=== PATIENT | male | born 1990 | race Caucasian/White ===

== ENCOUNTER 2016-11-20 01:50 | Emergency (ER) | payer SELFPAY ==
[~2016-11-20] VITALS: Ht 182.9 cm; Wt 82.0 kg
[~2016-11-20 01:50] MED LIST: CIPRO500 MG PO; FLAGYL500 MG PO; ZANTAC300 MG PO; ZOFRAN ODT8 MG PO
[2016-11-20 02:21] LABS: EOSINOPHIL (%) 0.1 % (0-5); HEMATOCRIT 47.8 % (38.0-50.0); IMMATURE GRANULOCYTE (%) 0.5 % (0.0-0.7); IMMATURE GRANULOCYTE COUNT 0.8 K/uL; LYMPHOCYTE COUNT 0.5 K/uL (1.0-2.8); MCH 29.1 PG (29.0-34.0); MCHC 35.6 G/DL (30.0-36.0); MCV 81.7 FL (86-99); MEAN PLAT.VOLUME 10.4 uM^3 (9.0-12.4); MONOCYTE COUNT 0.5 K/uL (0-0.8); NEUTROPHIL (%) 93.3 % (45-76); NEUTROPHIL COUNT 16.3 K/uL (1.8-6.4); PLATELET COUNT 277 K/uL (156-360); RBC DIS.WIDTH-CV 13.2 % (11.8-14.6); RED BLOOD COUNT 5.85 M/uL (4.00-5.50); WHITE BLOOD COUNT 17.4 K/uL (4.1-10.2)
[2016-11-20 02:31] LABS: CHLORIDE 106 mEq/L (99-109); POTASSIUM 4.1 mEq/L (3.7-5.4); SODIUM 143 mEq/L (136-147)
[2016-11-20 02:33] LABS: GLUCOSE 179 mg/dL (70-99)
[2016-11-20 02:34] LABS: ANION GAP 17 MEQ/L (2-14)
[2016-11-20 02:35] LABS: TOTAL BILIRUBIN 0.8 mg/dL (0.0-1.0)
[2016-11-20 02:37] LABS: ALKALINE PHOSPHATASE 105 IU/L (3-129); GFR ESTIMATE (CALCULATED) > 59 mL/min/
[2016-11-20 02:38] LABS: UREA NITROGEN (BUN) 20 mg/dL (9-23)
[2016-11-20 02:44] LABS: LIPASE < 1.0 U/L (1.0-51.0)
[2016-11-20] MEDS ORDERED: COMPAZINE10 MG PO (04:40)
[2016-11-20] MEDS ORDERED: ZOFRAN ODT4 MG PO (04:40)
[2016-11-20 04:43] LABS: BILIRUBIN SMALL; BLOOD NEGATIVE; COLOR DK YELLOW ((YELLOW)); GLUCOSE (STRIP) 100; KETONES 40; LEUKOCYTES NEGATIVE; NITRITE NEGATIVE; PH, URINE 6.5 (5-8); PROTEIN (STRIP) 30; SPECIFIC GRAVITY 1.031 (1.000-1.030); UROBILINOGEN 0.2 MG/DL (0.2-1.0)
[2016-11-20 04:50] LABS: ADD MIUA? NO; UCUL ADDED? NO
[2016-11-20 05:56] VITALS: BP 156/89
== END 2016-11-20 05:56 | disposition home or self-care (01) ==
LOC: EME 01:50
PROVIDERS: Emergency Medicine
DX: R11.2 Nausea with vomiting, unspecified (principal); R10.9 Unspecified abdominal pain; R19.7 Diarrhea, unspecified; E86.0 Dehydration; F17.200 Nicotine dependence, unspecified, uncomplicated
CPT/HCPCS: 74177; 80053; 81003; 83690; 85025; 99281; 99285; J0780; J2405; J2765; J7030